=== PATIENT | female | born 1960 | race American Indian/Alaskan Native ===

== ENCOUNTER 2019-04-20 10:26 | Emergency (ER) | payer MEDICAID ==
[2019-04-20 12:37] LABS: Basophils % (Auto) 1.1 % (0.0-1.8); Eosinophils % (Auto) 0.5 % (0.0-4.3); Hematocrit 39.7 % (30.3-42.9); Hemoglobin 13.3 gm/dl (10.1-14.3); Lymphocytes # (Auto) 0.9 K/mm3 (1.2-5.4); Lymphocytes % (Auto) 29.2 % (13.4-35.0); Mean Corpuscular HGB Conc 34 % (30-34); Mean Corpuscular Volume 88 fl (79-97); Monocytes # (Auto) 0.4 K/mm3 (0.0-0.8); Monocytes % (Auto) 13.9 % (0.0-7.3); Platelet Count 161 K/mm3 (140-440); Red Blood Count 4.52 M/mm3 (3.65-5.03); Red Cell Distribution Width 15.1 % (13.2-15.2)
[2019-04-20 13:01] LABS: Alanine Aminotransferase 13 units/L (7-56); Albumin 4.5 g/dL (3.9-5); BUN/Creatinine Ratio 12; Blood Urea Nitrogen 12 mg/dL (7-17); Calcium 9.1 mg/dL (8.4-10.2); Hemolysis Index 10
--- NOTE | 2019-04-20 13:30 | XRay Report ---
CHEST 1 VIEW INDICATION: hypertension. COMPARISON: None FINDINGS: Support devices: None. Heart: Within normal limits. Lungs/Pleura: No acute air space or interstitial disease. Additional findings: None. IMPRESSION: No acute findings. Signer Name: Kirit Guy Jr, MD Signed: 04/20/2019 1:25 PM Workstation Name: [id number]
--- NOTE | 2019-04-20 14:15 | Cat Scan Report ---
CT head/brain wo con INDICATION / CLINICAL INFORMATION: 58 years Female; AMS. TECHNIQUE: Routine CT head without contrast. All CT scans at this location are performed using CT dos e reduction for ALARA by means of automated exposure control. COMPARISON: None. FINDINGS: BRAIN / INTRACRANIAL CONTENTS: No acute hemorrhage, mass effect, midline shift, hydrocephalus, or acu te, large territorial infarct. No chronic infarct or focal atrophy. Normal brain volume and ventricul ar/sulcal size for age. No significant white matter abnormality. CRANIOCERVICAL JUNCTION: No significant abnormality. ORBITS: No significant abnormality of visualized orbits. SINUSES / MASTOIDS: No significant abnormality the visualized paranasal sinuses or mastoid air cells. ADDITIONAL FINDINGS: None. IMPRESSION: 1. No focal mass, hemorrhage, hydrocephalus, or acute, large territorial infarct. Signer Name: Anil Carrasquillo MD, III Signed: 04/20/2019 2:11 PM Workstation Name: [id number]
--- NOTE | 2019-04-20 14:53 | Emergency Department Report ---
ED General Adult HPI - General Chief complaint: Medical Clearance Stated complaint: AMS Time Seen by Provider: 04/20/19 12:08 Source: patient Mode of arrival: Ambulatory Limitations: No Limitations - History of Present Illness Initial comments: This is a 58-year-old female who was referred for medical clearance for [facility] care. The patient's dictation for [facility] treatment is not specifically known to me. However she does appear to have dementia. She does not know what State she is in. She can answer questions coherently but seems to have orientation problems and memory loss. He has grossly negative review of systems. Indeed she has no complaints whatsoever. -: unknown Associated Symptoms: denies other symptoms - Related Data Home Medications Medication Instructions Recorded Confirmed Last Taken FLUoxetine [Prozac] 10 mg PO QDAY 08/03/13 08/03/13 08/02/13 09:00 Lisinopril [Zestril TAB] 10 mg PO QDAY 08/03/13 08/03/13 08/03/13 08:00 Paliperidone Palmitate [Invega 0.75 ml SUB-Q QMONTH 08/03/13 08/03/13 07/27/13 10:00 [facility]] Previous Rx's Medication Instructions Recorded Last Taken Type Atenolol [Tenormin] 25 mg PO DAILY #30 tab 08/03/13 Unknown Rx Allergies Allergy/AdvReac Type Severity Reaction Status Date / Time No Known Allergies Allergy Verified 04/20/19 10:53 ED Review of Systems ROS: Stated complaint: AMS Other details as noted in HPI Constitutional: denies: chills, fever Eyes: denies: eye pain, eye discharge, vision change ENT: denies: ear pain, throat pain Respiratory: denies: cough, shortness of breath, wheezing Cardiovascular: denies: chest pain, palpitations Endocrine: no symptoms reported Gastrointestinal: denies: abdominal pain, nausea, diarrhea Genitourinary: denies: urgency, dysuria, discharge Musculoskeletal: denies: back pain, joint swelling, arthralgia Skin: denies: rash, lesions Neurological: denies: headache, weakness, paresthesias Psychiatric: denies: anxiety, depression Hematological/Lymphatic: denies: easy bleeding, easy bruising ED Past Medical Hx - Past Medical History Hx Hypertension: Yes Hx Psychiatric Treatment: Yes Additional medical history: bipolar. depression - Social History Smoking Status: Never Smoker Substance Use Type: None - Medications Home Medications: Home Medications Medication Instructions Recorded Confirmed Last Taken Type Atenolol [Tenormin] 25 mg PO DAILY #30 tab 08/03/13 Unknown Rx FLUoxetine [Prozac] 10 mg PO QDAY 08/03/13 08/03/13 08/02/13 09:00 History Lisinopril [Zestril TAB] 10 mg PO QDAY 08/03/13 08/03/13 08/03/13 08:00 History Paliperidone Palmitate [Invega 0.75 ml SUB-Q QMONTH 08/03/13 08/03/13 07/27/13 10:00 History [facility]] ED Physical Exam - General Limitations: No Limitations General appearance: alert, in no apparent distress - Head Head exam: Present: atraumatic, normocephalic - Eye Eye exam: Present: other (appears to have some corneal and/or anterior chamber c hronic changes O. D.) - ENT ENT exam: Present: mucous membranes moist - Neck Neck exam: Present: normal inspection. Absent: tenderness, meningismus - Respiratory Respiratory exam: Present: normal lung sounds bilaterally. Absent: respiratory distress - Cardiovascular Cardiovascular Exam: Present: regular rate, normal rhythm. Absent: systolic murmur, diastolic murmur, rubs, gallop - GI/Abdominal GI/Abdominal exam: Present: soft, normal bowel sounds. Absent: distended, tenderness, guarding, rebound, rigid - Extremities Exam Extremities exam: Present: normal inspection - Back Exam Back exam: Present: normal inspection - Neurological Exam Neurological exam: Present: alert, CN II-XII intact. Absent: oriented X3, motor sensory deficit - Psychiatric Psychiatric exam: Present: normal mood, flat affect - Skin Skin exam: Present: warm, dry, intact, normal color. Absent: rash ED Course Vital Signs 04/20/19 10:51 Temperature 97.8 F Pulse Rate 75 Respiratory 16 Rate Blood Pressure 128/76 O2 Sat by Pulse 100 Oximetry - Reevaluation(s) Reevaluation #1: Cleared appropriate for her [facility]psych[facility] placement. 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 Apparently she does have a history of bipolar disorder. Case was discussed with Dr. Hess who will be consulting for the [facility] psych unit. Patient is appropriate for discharge from the emergency department. 04/20/19 14:52 ED Medical Decision Making - Lab Data Result diagrams: 04/20/19 12:09 04/20/19 12:09 Laboratory Results - last 24 hr 04/20/19 04/20/19 04/20/19 12:09 12:09 12:09 WBC 3.0 L RBC 4.52 Hgb 13.3 Hct 39.7 MCV 88 MCH 29 MCHC 34 RDW 15.1 Plt Count 161 Lymph % (Auto) 29.2 [place] % (Auto) 13.9 H Eos % (Auto) 0.5 Baso % (Auto) 1.1 Lymph # 0.9 L [place] # 0.4 Eos # 0.0 Baso # 0.0 Seg Neutrophils % 55.3 Seg Neutrophils # 1.7 L Sodium 140 Potassium 4.4 Chloride 103.4 Carbon Dioxide 22 Anion Gap 19 BUN 12 Creatinine 1.0 Estimated GFR > 60 BUN/Creatinine Ratio 12 Glucose 82 Calcium 9.1 Total Bilirubin 0.50 AST 16 ALT 13 Alkaline Phosphatase 53 Total Protein 8.1 Albumin 4.5 Albumin/Globulin Ratio 1.3 Salicylates < 0.3 L Acetaminophen Plasma/Serum Alcohol 04/20/19 04/20/19 12:09 12:09 WBC RBC Hgb Hct MCV MCH MCHC RDW Plt Count Lymph % (Auto) [place] % (Auto) Eos % (Auto) Baso % (Auto) Lymph # [place] # Eos # Baso # Seg Neutrophils % Seg Neutrophils # Sodium Potassium Chloride Carbon Dioxide Anion Gap BUN Creatinine Estimated GFR BUN/Creatinine Ratio Glucose Calcium Total Bilirubin AST ALT Alkaline Phosphatase Total Protein Albumin Albumin/Globulin Ratio Salicylates Acetaminophen < 5.0 L Plasma/Serum Alcohol < 0.01 - Radiology Data Radiology results: report reviewed (CT the head no acute process) Critical care attestation.: If time is entered above; I have spent that time in minutes in the direct care of this critically ill patient, excluding procedure time. ED Disposition Clinical Impression: Medical clearance for psychiatric admission Dementia Qualifiers: Dementia type: unspecified type Dementia behavioral disturbance: without behavioral disturbance Qualified Code(s): F03.90 - Unspecified dementia without behavioral disturbance Disposition: DC-01 TO HOME OR SELFCARE Is pt being admited?: No Does the pt Need Aspirin: No Condition: Stable Instructions: Dementia (ED) Referrals: PRIMARY CARE, [Primary Care Provider] - 24 Hours Time of Disposition: 14:57
[2019-04-20 17:06] VITALS: BP 134/71
== END 2019-04-20 17:20 | disposition home or self-care (01) ==
LOC: ED 10:26
DX: F03.90 Unspecified dementia, unspecified severity, without behavioral disturbance, psychotic disturbance, mood disturbance, and anxiety (principal); I10 Essential (primary) hypertension; F32.9 Major depressive disorder, single episode, unspecified; Z79.899 Other long term (current) drug therapy
CPT/HCPCS: 36415; 70450; 71045; 80053; 80320; 85025; G0480

== ENCOUNTER 2019-04-20 15:34 | Inpatient (IN) | payer MEDICAID ==
[2019-04-20] MEDS ORDERED: ATIVAN IM PRN (17:43)
[2019-04-20] MEDS ORDERED: HALDOL IM PRN (17:43)
[2019-04-20] MEDS ORDERED: PALIPERIDONE PALMITATE SUB-Q SCH (17:45)
[2019-04-20 20:44] LABS: Basophils % (Auto) 0.9 % (0.0-1.8); Eosinophils % (Auto) 1.4 % (0.0-4.3); Hematocrit 37.7 % (30.3-42.9); Hemoglobin 12.9 gm/dl (10.1-14.3); Lymphocytes # (Auto) 0.9 K/mm3 (1.2-5.4); Mean Corpuscular HGB Conc 34 % (30-34); Mean Corpuscular Volume 88 fl (79-97); Monocytes # (Auto) 0.3 K/mm3 (0.0-0.8); Monocytes % (Auto) 12.2 % (0.0-7.3); Platelet Count 175 K/mm3 (140-440); Red Blood Count 4.31 M/mm3 (3.65-5.03); Red Cell Distribution Width 14.6 % (13.2-15.2)
[2019-04-20 21:19] LABS: Albumin 4.2 g/dL (3.9-5); Calcium 9.1 mg/dL (8.4-10.2); Chol/HDL Ratio 2.5 %
[2019-04-20] MEDS: RisperDAL PO SCH (21:45)
--- NOTE | 2019-04-21 09:11 | History and Physical Report ---
History of Present Illness Date of admission: 04/20/19 18:35 Chief complaint: Consulted for management of hypertension History of present illness: 58-year-old woman who was admitted to [facility] unit. Medicine consulted for medical H&P. Patient has no complaints but she is confused. Past medical history; hypertension, bipolar disorder, depression, psychosis Past surgical history; denies major surgeries Social history; denies smoking alcohol or drug abuse Family history; hypertension Medications and Allergies Allergies Allergy/AdvReac Type Severity Reaction Status Date / Time No Known Allergies Allergy Verified 04/20/19 10:53 Home Medications Medication Instructions Recorded Confirmed Last Taken Type Atenolol [Tenormin] 25 mg PO DAILY #30 tab 08/03/13 04/21/19 Unknown Rx FLUoxetine [Prozac] 10 mg PO QDAY 08/03/13 04/21/19 08/02/13 09:00 History Lisinopril [Zestril TAB] 10 mg PO QDAY 08/03/13 04/21/19 08/03/13 08:00 History Paliperidone Palmitate [Invega 0.75 ml SUB-Q QMONTH 08/03/13 04/21/19 07/27/13 10:00 History [facility]] Active Meds: Active Medications Atenolol (Tenormin) 25 mg PO DAILY [facility] Fluoxetine HCl (Prozac) 10 mg PO QDAY [facility] Haloperidol Lactate (Haldol) 5 mg IM Q6H PRN PRN Reason: Agitation Lisinopril (Zestril) 10 mg PO QDAY [facility] Lorazepam (Ativan) 2 mg IM Q6H PRN PRN Reason: Agitation Miscellaneous Medication (Paliperidone Palmitate [Invega [facility]ust[facility]]) 0.75 ml SUB-Q QMONTH [facility] Risperidone (Risperdal) 1 mg PO BID [facility] Last Admin: 04/20/19 21:45 Dose: 1 mg Documented by: Review of Systems ROS unobtainable: due to mental status Exam - Constitutional Vitals: Temp Pulse Resp BP Pulse Ox 97.6 F 93 H 18 91/40 99 04/20/19 22:00 04/20/19 22:00 04/20/19 22:00 04/20/19 22:00 04/20/19 22:00 General appearance: Present: no acute distress, well-nourished - EENT Eyes: Present: PERRL ENT: hearing intact, clear oral mucosa - Neck Neck: Present: supple, normal ROM - Respiratory Respiratory effort: normal Respiratory: bilateral: CTA - Cardiovascular Heart Sounds: Present: S1 & S2. Absent: rub, click - Extremities Extremities: pulses symmetrical, No edema Peripheral Pulses: within normal limits - Abdominal General gastrointestinal: Present: soft, non-tender, non-distended, normal bowel sounds Female genitourinary: Present: normal - Integumentary Integumentary: Present: clear, warm, dry - Musculoskeletal Musculoskeletal: gait normal, strength equal bilaterally - Psychiatric Psychiatric: no appropriate mood/affect, no intact judgment & insight, no memory intact - Neurologic Neurologic: CNII-XII intact, moves all extremities Results - Labs CBC & Chem 7: 04/20/19 20:14 04/20/19 20:14 Labs: Laboratory Last Values WBC 2.8 K/mm3 (4.5-11.0) L 04/20/19 20:14 RBC 4.31 M/mm3 (3.65-5.03) 04/20/19 20:14 Hgb 12.9 gm/dl (10.1-14.3) 04/20/19 20:14 Hct 37.7 % (30.3-42.9) 04/20/19 20:14 MCV 88 fl (79-97) 04/20/19 20:14 MCH 30 pg (28-32) 04/20/19 20:14 MCHC 34 % (30-34) 04/20/19 20:14 RDW 14.6 % (13.2-15.2) 04/20/19 20:14 Plt Count 175 K/mm3 (140-440) 04/20/19 20:14 Lymph % (Auto) 33.0 % (13.4-35.0) 04/20/19 20:14 Carbon % (Auto) 12.2 % (0.0-7.3) H 04/20/19 20:14 Eos % (Auto) 1.4 % (0.0-4.3) 04/20/19 20:14 Baso % (Auto) 0.9 % (0.0-1.8) 04/20/19 20:14 Lymph # 0.9 K/mm3 (1.2-5.4) L 04/20/19 20:14 Carbon # 0.3 K/mm3 (0.0-0.8) 04/20/19 20:14 Eos # 0.0 K/mm3 (0.0-0.4) 04/20/19 20:14 Baso # 0.0 K/mm3 (0.0-0.1) 04/20/19 20:14 Seg Neutrophils % 52.5 % (40.0-70.0) 04/20/19 20:14 Seg Neutrophils # 1.5 K/mm3 (1.8-7.7) L 04/20/19 20:14 Sodium 136 mmol/L (137-145) L 04/20/19 20:14 Potassium 3.8 mmol/L (3.6-5.0) 04/20/19 20:14 Chloride 100.1 mmol/L (98-107) 04/20/19 20:14 Carbon Dioxide 19 mmol/L (22-30) L 04/20/19 20:14 Anion Gap 21 mmol/L 04/20/19 20:14 BUN 14 mg/dL (7-17) 04/20/19 20:14 Creatinine 1.5 mg/dL (0.7-1.2) H 04/20/19 20:14 Estimated GFR 43 ml/min 04/20/19 20:14 BUN/Creatinine Ratio 9 % 04/20/19 20:14 Glucose 228 mg/dL (65-100) H 04/20/19 20:14 POC Glucose 89 (70-105) 04/21/19 06:54 Hemoglobin A1c 5.2 % (4-6) 04/20/19 20:14 Calcium 9.1 mg/dL (8.4-10.2) 04/20/19 20:14 Total Bilirubin 0.40 mg/dL (0.1-1.2) 04/20/19 20:14 AST 15 units/L (5-40) 04/20/19 20:14 ALT 13 units/L (7-56) 04/20/19 20:14 Alkaline Phosphatase 53 units/L (35-129) 04/20/19 20:14 Total Protein 7.9 g/dL (6.3-8.2) 04/20/19 20:14 Albumin 4.2 g/dL (3.9-5) 04/20/19 20:14 Albumin/Globulin Ratio 1.1 % 04/20/19 20:14 Triglycerides 51 mg/dL (2-149) 04/20/19 20:14 Cholesterol 140 mg/dL (50-199) 04/20/19 20:14 LDL Cholesterol Direct 73 mg/dL (50-130) 04/20/19 20:14 HDL Cholesterol 56 mg/dL (40-59) 04/20/19 20:14 Cholesterol/HDL Ratio 2.50 % 04/20/19 20:14 Assessment and Plan Assessment and plan: 58-year-old woman admitted to [facility] unit for management of bipolar disorder and senile dementia Hypertension; continue home medications Bipolar disorder and psychosis; management per [facility] DVT prophylaxis; frequent ambulation, per primary team
[2019-04-21] MEDS: RisperDAL PO SCH ×2 (10:16→21:30)
[2019-04-21] MEDS: PROzac PO SCH (10:16)
[2019-04-21] MEDS: TENORMIN PO SCH (10:17)
[2019-04-21] MEDS: ZESTRIL PO SCH (10:17)
--- NOTE | 2019-04-22 05:01 | History and Physical Report ---
GP History & Physical - History of Present Illness Date of admission: 04/20/19 Date of Examination: 04/21/19 Reason for Admission: Danger to self, Danger to others, Impaired reality testing, Psychopathology interference, Unable to care for self Chief Complaint: I was annoyed History of Present Illness: The patient is a 52yo but disabled -[place] female with history of Schizophrenia. She presents with bizarre, disorganized behavior and inability to care for self. Per patient's sister's report, Patient's ability to complete ADLs (showering and dressing) has declined. She is on monthly injection of Invega which seems to be effective in keeping patient's mental state stable. Her next injection is within a week from onset of deterioration of mental state. Sister reports is experienci ng worsening A/H and patient has been more agitated agitation and she is responding more to internal stimuli. Patient was started on Risperidone 1mg bid on admission last night. Patient seen this morning. She is calm and pleasant but appears to be guarded. She reports being annoyed at home but states "I am fine now". She denies SI/HI/AVH/Paranoia. Legal Status: Voluntary Patient Problems: Current Active Problems Schizophrenia (Acute) Medications and Allergies Allergies Allergy/AdvReac Type Severity Reaction Status Date / Time No Known Allergies Allergy Verified 04/20/19 10:53 Home Medications Medication Instructions Recorded Confirmed Last Taken Type Atenolol [Tenormin] 25 mg PO DAILY #30 tab 08/03/13 04/21/19 Unknown Rx FLUoxetine [Prozac] 10 mg PO QDAY 08/03/13 04/21/19 08/02/13 09:00 History Lisinopril [Zestril TAB] 10 mg PO QDAY 08/03/13 04/21/19 08/03/13 08:00 History Paliperidone Palmitate [Invega 0.75 ml SUB-Q QMONTH 08/03/13 04/21/19 07/27/13 10:00 History Sust[facility]] Active Meds: Active Medications Atenolol (Tenormin) 25 mg PO DAILY [facility] Last Admin: 04/21/19 10:17 Dose: 25 mg Documented by: Fluoxetine HCl (Prozac) 10 mg PO QDAY [facility] Last Admin: 04/21/19 10:16 Dose: 10 mg Documented by: Haloperidol Lactate (Haldol) 5 mg IM Q6H PRN PRN Reason: Agitation Lisinopril (Zestril) 10 mg PO QDAY [facility] Last Admin: 04/21/19 10:17 Dose: Not Given Documented by: Lorazepam (Ativan) 2 mg IM Q6H PRN PRN Reason: Agitation Miscellaneous Medication (Paliperidone Palmitate [Invega Sustenna]) 0.75 ml SUB-Q QMONTH [facility] Risperidone (Risperdal) 1 mg PO BID [facility] Last Admin: 04/21/19 21:30 Dose: 1 mg Documented by: Substance History - Substance History Drug Use: none Hx Tobacco Use: No Alcohol Use: No Past psychiatric history - Past Medical History Past Medical History: hypertension - past Psychiatric treatment and history Psych: Schizophrenia psychiatric treatment history: Patient has established outpatient care. She denies prior suicide attempt - Social History Social history: lives with family (with sister, but , disabled, completed H/S, denies legal problems and denies access to guns. ) Review of Systems All systems: negative Psychiatric: hallucinations Results - Results Labs/Vitals: Laboratory Last Values WBC 2.8 K/mm3 (4.5-11.0) L 04/20/19 20:14 RBC 4.31 M/mm3 (3.65-5.03) 04/20/19 20:14 Hgb 12.9 gm/dl (10.1-14.3) 04/20/19 20:14 Hct 37.7 % (30.3-42.9) 04/20/19 20:14 MCV 88 fl (79-97) 04/20/19 20:14 MCH 30 pg (28-32) 04/20/19 20:14 MCHC 34 % (30-34) 04/20/19 20:14 RDW 14.6 % (13.2-15.2) 04/20/19 20:14 Plt Count 175 K/mm3 (140-440) 04/20/19 20:14 Lymph % (Auto) 33.0 % (13.4-35.0) 04/20/19 20:14 [place] % (Auto) 12.2 % (0.0-7.3) H 04/20/19 20:14 Eos % (Auto) 1.4 % (0.0-4.3) 04/20/19 20:14 Baso % (Auto) 0.9 % (0.0-1.8) 04/20/19 20:14 Lymph # 0.9 K/mm3 (1.2-5.4) L 04/20/19 20:14 [place] # 0.3 K/mm3 (0.0-0.8) 04/20/19 20:14 Eos # 0.0 K/mm3 (0.0-0.4) 04/20/19 20:14 Baso # 0.0 K/mm3 (0.0-0.1) 04/20/19 20:14 Seg Neutrophils % 52.5 % (40.0-70.0) 04/20/19 20:14 Seg Neutrophils # 1.5 K/mm3 (1.8-7.7) L 04/20/19 20:14 Sodium 136 mmol/L (137-145) L 04/20/19 20:14 Potassium 3.8 mmol/L (3.6-5.0) 04/20/19 20:14 Chloride 100.1 mmol/L (98-107) 04/20/19 20:14 Carbon Dioxide 19 mmol/L (22-30) L 04/20/19 20:14 Anion Gap 21 mmol/L 04/20/19 20:14 BUN 14 mg/dL (7-17) 04/20/19 20:14 Creatinine 1.5 mg/dL (0.7-1.2) H 04/20/19 20:14 Estimated GFR 43 ml/min 04/20/19 20:14 BUN/Creatinine Ratio 9 % 04/20/19 20:14 Glucose 228 mg/dL (65-100) H 04/20/19 20:14 POC Glucose 89 (70-105) 04/21/19 06:54 Hemoglobin A1c 5.2 % (4-6) 04/20/19 20:14 Calcium 9.1 mg/dL (8.4-10.2) 04/20/19 20:14 Total Bilirubin 0.40 mg/dL (0.1-1.2) 04/20/19 20:14 AST 15 units/L (5-40) 04/20/19 20:14 ALT 13 units/L (7-56) 04/20/19 20:14 Alkaline Phosphatase 53 units/L (35-129) 04/20/19 20:14 Total Protein 7.9 g/dL (6.3-8.2) 04/20/19 20:14 Albumin 4.2 g/dL (3.9-5) 04/20/19 20:14 Albumin/Globulin Ratio 1.1 % 04/20/19 20:14 Triglycerides 51 mg/dL (2-149) 04/20/19 20:14 Cholesterol 140 mg/dL (50-199) 04/20/19 20:14 LDL Cholesterol Direct 73 mg/dL (50-130) 04/20/19 20:14 HDL Cholesterol 56 mg/dL (40-59) 04/20/19 20:14 Cholesterol/HDL Ratio 2.50 % 04/20/19 20:14 Last Vital Signs Temp 97.7 F 04/21/19 19:02 Pulse 60 04/21/19 19:03 Resp 18 04/21/19 19:02 BP 88/55 04/21/19 19:02 Pulse Ox 99 04/21/19 19:03 Physical Examination - Constitutional Vitals: Vital Signs Temp Pulse Resp BP Pulse Ox 97.7 F 60 18 88/55 99 04/21/19 19:02 04/21/19 19:03 04/21/19 19:02 04/21/19 19:02 04/21/19 19:03 Temperature -Last 24 Hours Temperature 97.7 F Temperature 98.1 F General appearance: Present: no acute distress - EENT Eyes: Present: PERRL, EOM intact ENT: hearing intact, clear oral mucosa - Neck Neck: Present: supple, normal ROM - Respiratory Respiratory effort: normal Mental Status Exam - Vital signs Last Vital Signs Temp 97.7 F 04/21/19 19:02 Pulse 60 04/21/19 19:03 Resp 18 04/21/19 19:02 BP 88/55 04/21/19 19:02 Pulse Ox 99 04/21/19 19:03 - Exam Orientation: time, place, person Affect: normal Mood: congruent with affect Thought Process: Thought Blocking Perceptions: auditory Speech: paucity Concentration: focused Motor activity: normal Level of consciousness: alert Memory: Intact Interaction: cooperative Assessment and Plan - Psychiatric problem (1) Schizophrenia Current Visit: Yes Status: Acute Qualifiers: Schizophrenia type: paranoid schizophrenia Qualified Code(s): F20.0 - Paranoid schizophrenia plan to address problem: Patient will be admitted for inpatient psychiatric evaluation, medication adjustment and close monitoring The patient's behavior, mood, sleep and appetite will be closely monitored. Patient will be enrolled in individual and group therapeutic sessions and encouraged to attend. Patient will be provided with a safe and structured environment. Patient's physical health needs will be addressed by the Hospitalist. Social Assessment will be completed and the Farm Management Adviser will work with patient and family to ensure a suitable and safe disposition Medication adjustment will be made as clinically indicated The patient agreed on the treatment plan, understood the risk, benefit, alternative treatment, potential consequence of no treatment, and gave informed consent. Physician Certification - Certification Statement Physician Certification Statement: This is an acknowledgement statement that ALHAJI US is a 58 year old F who requires inpatient psychiatric admission for treatment which could reasonably be expected to improve the patient's condition for Schizophrenia Estimated period of time patient will need to remain in the hospital: 5 days Plan for post-hospital care: Out-patient care
[2019-04-22] MEDS: ZESTRIL PO SCH (09:26)
[2019-04-22] MEDS: PROzac PO SCH (09:28)
[2019-04-22] MEDS: RisperDAL PO SCH ×2 (09:28→21:00)
[2019-04-22] MEDS: TENORMIN PO SCH (09:28)
--- NOTE | 2019-04-22 19:33 | Progress Note ---
Subjective Date of service: 04/22/19 Principal diagnosis: Paranoid Schizophrenia Subjective Comment: Patient is calm and pleasant this morning. She reports feeling better. She denies SI/HI/AVH/Paranoia. She is cooperative with cares and compliant with medications. She denies side to medications. MSE Orientation: time, place, person Affect: normal Mood: congruent with affect Thought Process: Linear Perceptions: none Speech: wnl Concentration: focused Motor activity: normal Level of consciousness: alert Memory: Intact Interaction: cooperative Objective - Criteria for Continued Treatment Criteria for Continued Treatment: Improving Level of Functioning, Stablizing Level of Functioning, Improving Emotional/Socia - Objective Observation Participation Level: Moderate Assessment and Plan - Patient Problems (1) Schizophrenia Current Visit: Yes Status: Acute Qualifiers: Schizophrenia type: paranoid schizophrenia Qualified Code(s): F20.0 - Paranoid schizophrenia Plan to address problem: Patient will be admitted for inpatient psychiatric evaluation, medication adjustment and close monitoring The patient's behavior, mood, sleep and appetite will be closely monitored. Patient will be enrolled in individual and group therapeutic sessions and encouraged to attend. Patient will be provided with a safe and structured environment. Patient's physical health needs will be addressed by the Hospitalist. Social Assessment will be completed and the Concrete Fence Builder will work with patient and family to ensure a suitable and safe disposition Medication adjustment will be made as clinically indicated The patient agreed on the treatment plan, understood the risk, benefit, alternative treatment, potential consequence of no treatment, and gave informed consent. Medications and Allergies Allergies Allergy/AdvReac Type Severity Reaction Status Date / Time No Known Allergies Allergy Verified 04/20/19 10:53 Home Medications Medication Instructions Recorded Confirmed Last Taken Type Atenolol [Tenormin] 25 mg PO DAILY #30 tab 08/03/13 04/21/19 Unknown Rx FLUoxetine [Prozac] 10 mg PO QDAY 08/03/13 04/21/19 08/02/13 09:00 History Lisinopril [Zestril TAB] 10 mg PO QDAY 08/03/13 04/21/19 08/03/13 08:00 History Paliperidone Palmitate [Invega 0.75 ml SUB-Q QMONTH 08/03/13 04/21/19 07/27/13 10:00 History Sustenna] Active Meds: Active Medications Atenolol (Tenormin) 25 mg PO DAILY [facility] Last Admin: 04/22/19 09:28 Dose: 25 mg Documented by: Fluoxetine HCl (Prozac) 10 mg PO QDAY [facility] Last Admin: 04/22/19 09:28 Dose: 10 mg Documented by: Haloperidol Lactate (Haldol) 5 mg IM Q6H PRN PRN Reason: Agitation Lisinopril (Zestril) 10 mg PO QDAY [facility] Last Admin: 04/22/19 09:26 Dose: 10 mg Documented by: Lorazepam (Ativan) 2 mg IM Q6H PRN PRN Reason: Agitation Miscellaneous Medication (Paliperidone Palmitate [Invega Sustenna]) 0.75 ml SUB-Q QMONTH [facility] Risperidone (Risperdal) 1 mg PO BID [facility] Last Admin: 04/22/19 09:28 Dose: 1 mg Documented by: Results - Results Labs/Vitals: Laboratory Last Values WBC 2.8 K/mm3 (4.5-11.0) L 04/20/19 20:14 RBC 4.31 M/mm3 (3.65-5.03) 04/20/19 20:14 Hgb 12.9 gm/dl (10.1-14.3) 04/20/19 20:14 Hct 37.7 % (30.3-42.9) 04/20/19 20:14 MCV 88 fl (79-97) 04/20/19 20:14 MCH 30 pg (28-32) 04/20/19 20:14 MCHC 34 % (30-34) 04/20/19 20:14 RDW 14.6 % (13.2-15.2) 04/20/19 20:14 Plt Count 175 K/mm3 (140-440) 04/20/19 20:14 Lymph % (Auto) 33.0 % (13.4-35.0) 04/20/19 20:14 [place] % (Auto) 12.2 % (0.0-7.3) H 04/20/19 20:14 Eos % (Auto) 1.4 % (0.0-4.3) 04/20/19 20:14 Baso % (Auto) 0.9 % (0.0-1.8) 04/20/19 20:14 Lymph # 0.9 K/mm3 (1.2-5.4) L 04/20/19 20:14 [place] # 0.3 K/mm3 (0.0-0.8) 04/20/19 20:14 Eos # 0.0 K/mm3 (0.0-0.4) 04/20/19 20:14 Baso # 0.0 K/mm3 (0.0-0.1) 04/20/19 20:14 Seg Neutrophils % 52.5 % (40.0-70.0) 04/20/19 20:14 Seg Neutrophils # 1.5 K/mm3 (1.8-7.7) L 04/20/19 20:14 Sodium 136 mmol/L (137-145) L 04/20/19 20:14 Potassium 3.8 mmol/L (3.6-5.0) 04/20/19 20:14 Chloride 100.1 mmol/L (98-107) 04/20/19 20:14 Carbon Dioxide 19 mmol/L (22-30) L 04/20/19 20:14 Anion Gap 21 mmol/L 04/20/19 20:14 BUN 14 mg/dL (7-17) 04/20/19 20:14 Creatinine 1.5 mg/dL (0.7-1.2) H 04/20/19 20:14 Estimated GFR 43 ml/min 04/20/19 20:14 BUN/Creatinine Ratio 9 % 04/20/19 20:14 Glucose 228 mg/dL (65-100) H 04/20/19 20:14 POC Glucose 89 (70-105) 04/21/19 06:54 Hemoglobin A1c 5.2 % (4-6) 04/20/19 20:14 Calcium 9.1 mg/dL (8.4-10.2) 04/20/19 20:14 Total Bilirubin 0.40 mg/dL (0.1-1.2) 04/20/19 20:14 AST 15 units/L (5-40) 04/20/19 20:14 ALT 13 units/L (7-56) 04/20/19 20:14 Alkaline Phosphatase 53 units/L (35-129) 04/20/19 20:14 Total Protein 7.9 g/dL (6.3-8.2) 04/20/19 20:14 Albumin 4.2 g/dL (3.9-5) 04/20/19 20:14 Albumin/Globulin Ratio 1.1 % 04/20/19 20:14 Triglycerides 51 mg/dL (2-149) 04/20/19 20:14 Cholesterol 140 mg/dL (50-199) 04/20/19 20:14 LDL Cholesterol Direct 73 mg/dL (50-130) 04/20/19 20:14 HDL Cholesterol 56 mg/dL (40-59) 04/20/19 20:14 Cholesterol/HDL Ratio 2.50 % 04/20/19 20:14 Last Vital Signs Temp 98.2 F 04/22/19 09:09 Pulse 72 04/22/19 10:00 Resp 16 04/22/19 09:09 BP 98/62 04/22/19 10:00 Pulse Ox 99 04/22/19 09:09
--- NOTE | 2019-04-23 07:38 | Progress Note ---
Subjective Date of service: 04/23/19 Principal diagnosis: Paranoid Schizophrenia Subjective Comment: Pt states that she is complaint with all her meds, denies any side effects, slept well and has a fair appetite. Pt denies hallucinations, denies harming herself/others, and denies paranoia. Pt stated that she had no questions/concerns for physician. Plan to d/c pt 24 Apr 2019. Nursing note states, Patient alert and oriented x2. Denies pain. Compliant with medications. Reports that pt was hypotensive and bradycardia at the start of the shift 75/47, BP rechecked and was 80/50, patient given PO fluids and a snack and is doing well. MSE Orientation: time, place, person Affect: normal Mood: congruent with affect Thought Process: Linear Perceptions: none Speech: wnl Concentration: focused Motor activity: normal Level of consciousness: alert Memory: Intact Interaction: cooperative Objective - Criteria for Continued Treatment Criteria for Continued Treatment: Improving Level of Functioning, Improving Treatment / Medication Compliance - Mental Status Mental Status: Oriented x 3 - Objective Observation Participation Level: Minimal Reason(s) For Not Participating: Asocial Assessment and Plan - Patient Problems (1) Schizophrenia Current Visit: Yes Status: Acute Qualifiers: Schizophrenia type: paranoid schizophrenia Qualified Code(s): F20.0 - Paranoid schizophrenia Plan to address problem: Patient will be admitted for inpatient psychiatric evaluation, medication adjustment and close monitoring The patient's behavior, mood, sleep and appetite will be closely monitored. Patient will be enrolled in individual and group therapeutic sessions and encouraged to attend. Patient will be provided with a safe and structured environment. Patient's physical health needs will be addressed by the Hospitalist. Social Assessment will be completed and the Dementia Program Director will work with patient and family to ensure a suitable and safe disposition Medication adjustment will be made as clinically indicated The patient agreed on the treatment plan, understood the risk, benefit, alternative treatment, potential consequence of no treatment, and gave informed consent. Medications and Allergies Allergies Allergy/AdvReac Type Severity Reaction Status Date / Time No Known Allergies Allergy Verified 04/20/19 10:53 Home Medications Medication Instructions Recorded Confirmed Last Taken Type Atenolol [Tenormin] 25 mg PO DAILY #30 tab 08/03/13 04/21/19 Unknown Rx FLUoxetine [Prozac] 10 mg PO QDAY 08/03/13 04/21/19 08/02/13 09:00 History Lisinopril [Zestril TAB] 10 mg PO QDAY 08/03/13 04/21/19 08/03/13 08:00 History Paliperidone Palmitate [Invega 0.75 ml SUB-Q QMONTH 08/03/13 04/21/19 07/27/13 10:00 History Sustenna] Active Meds: Active Medications Atenolol (Tenormin) 25 mg PO DAILY [facility] Last Admin: 04/22/19 09:28 Dose: 25 mg Documented by: Fluoxetine HCl (Prozac) 10 mg PO QDAY [facility] Last Admin: 04/22/19 09:28 Dose: 10 mg Documented by: Haloperidol Lactate (Haldol) 5 mg IM Q6H PRN PRN Reason: Agitation Lisinopril (Zestril) 10 mg PO QDAY [facility] Last Admin: 04/22/19 09:26 Dose: 10 mg Documented by: Lorazepam (Ativan) 2 mg IM Q6H PRN PRN Reason: Agitation Miscellaneous Medication (Paliperidone Palmitate [Invega Sustenna]) 0.75 ml SUB-Q QMONTH [facility] Risperidone (Risperdal) 1 mg PO BID [facility] Last Admin: 04/22/19 21:00 Dose: 1 mg Documented by: Results - Results Labs/Vitals: Laboratory Last Values WBC 2.8 K/mm3 (4.5-11.0) L 04/20/19 20:14 RBC 4.31 M/mm3 (3.65-5.03) 04/20/19 20:14 Hgb 12.9 gm/dl (10.1-14.3) 04/20/19 20:14 Hct 37.7 % (30.3-42.9) 04/20/19 20:14 MCV 88 fl (79-97) 04/20/19 20:14 MCH 30 pg (28-32) 04/20/19 20:14 MCHC 34 % (30-34) 04/20/19 20:14 RDW 14.6 % (13.2-15.2) 04/20/19 20:14 Plt Count 175 K/mm3 (140-440) 04/20/19 20:14 Lymph % (Auto) 33.0 % (13.4-35.0) 04/20/19 20:14 [place] % (Auto) 12.2 % (0.0-7.3) H 04/20/19 20:14 Eos % (Auto) 1.4 % (0.0-4.3) 04/20/19 20:14 Baso % (Auto) 0.9 % (0.0-1.8) 04/20/19 20:14 Lymph # 0.9 K/mm3 (1.2-5.4) L 04/20/19 20:14 [place] # 0.3 K/mm3 (0.0-0.8) 04/20/19 20:14 Eos # 0.0 K/mm3 (0.0-0.4) 04/20/19 20:14 Baso # 0.0 K/mm3 (0.0-0.1) 04/20/19 20:14 Seg Neutrophils % 52.5 % (40.0-70.0) 04/20/19 20:14 Seg Neutrophils # 1.5 K/mm3 (1.8-7.7) L 04/20/19 20:14 Sodium 136 mmol/L (137-145) L 04/20/19 20:14 Potassium 3.8 mmol/L (3.6-5.0) 04/20/19 20:14 Chloride 100.1 mmol/L (98-107) 04/20/19 20:14 Carbon Dioxide 19 mmol/L (22-30) L 04/20/19 20:14 Anion Gap 21 mmol/L 04/20/19 20:14 BUN 14 mg/dL (7-17) 04/20/19 20:14 Creatinine 1.5 mg/dL (0.7-1.2) H 04/20/19 20:14 Estimated GFR 43 ml/min 04/20/19 20:14 BUN/Creatinine Ratio 9 % 04/20/19 20:14 Glucose 228 mg/dL (65-100) H 04/20/19 20:14 POC Glucose 89 (70-105) 04/21/19 06:54 Hemoglobin A1c 5.2 % (4-6) 04/20/19 20:14 Calcium 9.1 mg/dL (8.4-10.2) 04/20/19 20:14 Total Bilirubin 0.40 mg/dL (0.1-1.2) 04/20/19 20:14 AST 15 units/L (5-40) 04/20/19 20:14 ALT 13 units/L (7-56) 04/20/19 20:14 Alkaline Phosphatase 53 units/L (35-129) 04/20/19 20:14 Total Protein 7.9 g/dL (6.3-8.2) 04/20/19 20:14 Albumin 4.2 g/dL (3.9-5) 04/20/19 20:14 Albumin/Globulin Ratio 1.1 % 04/20/19 20:14 Triglycerides 51 mg/dL (2-149) 04/20/19 20:14 Cholesterol 140 mg/dL (50-199) 04/20/19 20:14 LDL Cholesterol Direct 73 mg/dL (50-130) 04/20/19 20:14 HDL Cholesterol 56 mg/dL (40-59) 04/20/19 20:14 Cholesterol/HDL Ratio 2.50 % 04/20/19 20:14 Last Vital Signs Temp 97.5 F L 04/22/19 22:00 Pulse 56 L 04/22/19 22:00 Resp 18 04/22/19 22:00 BP 80/50 04/22/19 22:00 Pulse Ox 97 04/22/19 22:00
[2019-04-23] MEDS: PROzac PO SCH (10:25)
[2019-04-23] MEDS: RisperDAL PO SCH ×2 (10:29→22:20)
[2019-04-23] MEDS: TENORMIN PO SCH (12:28)
[2019-04-23] MEDS: ZESTRIL PO SCH (12:30)
--- NOTE | 2019-04-24 09:58 | Discharge Summary ---
Providers - Providers Date of Admission: 04/20/19 18:35 Date of discharge: 04/24/19 Attending physician: RAEANN LUCAS MD 04/21/19 08:33 Consult to Physician [CONS] Routine Comment: Consulting Provider: ANGELO XIE Physician Instructions: Reason For Exam: h&p Primary care physician: DIRECTOR OF [employer] Hospitalization Reason for admission: Impaired reality testing, Psychopathology interference, Unable to care for Condition: Stable Hospital course: The patient was provided inpatient psychiatric treatment with safe and supportive environment, group therapy, individual counseling, psychiatric medication, medication adjustment, adverse effect monitor, medical evaluation, medical treatment, social service assessment, family/social support meeting, placement assessment and psycho-education. The patients mood, anxiety, thoughts, stress management skill, cognition, impulse/anger control, motivation, understanding of disease, compliance to treatment and appreciation on family/social support are improved and stabilized. At the time of discharge, the patient had no suicidal ideas, no homicidal ideas, no aggressive thoughts, no endangering behavior and no debilitating adverse effects. Disposition: - TO HOME OR SELFCARE Time spent for discharge: 34 minutes Allergies/Adverse Reactions: Allergies No Known Allergies Allergy (Verified 04/20/19 10:53) Vital Signs: Last Vital Signs Temp 98 F 04/23/19 21:25 Pulse 72 04/23/19 21:25 Resp 16 04/23/19 21:25 BP 104/60 04/23/19 21:25 Pulse Ox 100 04/23/19 21:25 Last Lab: Laboratory Last Values WBC 2.8 K/mm3 (4.5-11.0) L 04/20/19 20:14 RBC 4.31 M/mm3 (3.65-5.03) 04/20/19 20:14 Hgb 12.9 gm/dl (10.1-14.3) 04/20/19 20:14 Hct 37.7 % (30.3-42.9) 04/20/19 20:14 MCV 88 fl (79-97) 04/20/19 20:14 MCH 30 pg (28-32) 04/20/19 20:14 MCHC 34 % (30-34) 04/20/19 20:14 RDW 14.6 % (13.2-15.2) 04/20/19 20:14 Plt Count 175 K/mm3 (140-440) 04/20/19 20:14 Lymph % (Auto) 33.0 % (13.4-35.0) 04/20/19 20:14 [place] % (Auto) 12.2 % (0.0-7.3) H 04/20/19 20:14 Eos % (Auto) 1.4 % (0.0-4.3) 04/20/19 20:14 Baso % (Auto) 0.9 % (0.0-1.8) 04/20/19 20:14 Lymph # 0.9 K/mm3 (1.2-5.4) L 04/20/19 20:14 [place] # 0.3 K/mm3 (0.0-0.8) 04/20/19 20:14 Eos # 0.0 K/mm3 (0.0-0.4) 04/20/19 20:14 Baso # 0.0 K/mm3 (0.0-0.1) 04/20/19 20:14 Seg Neutrophils % 52.5 % (40.0-70.0) 04/20/19 20:14 Seg Neutrophils # 1.5 K/mm3 (1.8-7.7) L 04/20/19 20:14 Sodium 136 mmol/L (137-145) L 04/20/19 20:14 Potassium 3.8 mmol/L (3.6-5.0) 04/20/19 20:14 Chloride 100.1 mmol/L (98-107) 04/20/19 20:14 Carbon Dioxide 19 mmol/L (22-30) L 04/20/19 20:14 Anion Gap 21 mmol/L 04/20/19 20:14 BUN 14 mg/dL (7-17) 04/20/19 20:14 Creatinine 1.5 mg/dL (0.7-1.2) H 04/20/19 20:14 Estimated GFR 43 ml/min 04/20/19 20:14 BUN/Creatinine Ratio 9 % 04/20/19 20:14 Glucose 228 mg/dL (65-100) H 04/20/19 20:14 POC Glucose 89 (70-105) 04/21/19 06:54 Hemoglobin A1c 5.2 % (4-6) 04/20/19 20:14 Calcium 9.1 mg/dL (8.4-10.2) 04/20/19 20:14 Total Bilirubin 0.40 mg/dL (0.1-1.2) 04/20/19 20:14 AST 15 units/L (5-40) 04/20/19 20:14 ALT 13 units/L (7-56) 04/20/19 20:14 Alkaline Phosphatase 53 units/L (35-129) 04/20/19 20:14 Total Protein 7.9 g/dL (6.3-8.2) 04/20/19 20:14 Albumin 4.2 g/dL (3.9-5) 04/20/19 20:14 Albumin/Globulin Ratio 1.1 % 04/20/19 20:14 Triglycerides 51 mg/dL (2-149) 04/20/19 20:14 Cholesterol 140 mg/dL (50-199) 04/20/19 20:14 LDL Cholesterol Direct 73 mg/dL (50-130) 04/20/19 20:14 HDL Cholesterol 56 mg/dL (40-59) 04/20/19 20:14 Cholesterol/HDL Ratio 2.50 % 04/20/19 20:14 - Discharge Diagnoses (1) Schizophrenia Status: Acute Qualifiers: Schizophrenia type: paranoid schizophrenia Qualified Code(s): F20.0 - Paranoid schizophrenia Core Measure Documentation - Palliative Care Palliative Care/ Comfort Measures: Not Applicable - Core Measures Any of the following diagnoses?: none Exam - Constitutional Vitals: Temp Pulse Resp BP Pulse Ox 98 F 72 16 104/60 100 04/23/19 21:25 04/23/19 21:25 04/23/19 21:25 04/23/19 21:25 04/23/19 21:25 General appearance: Present: no acute distress - EENT Eyes: Present: PERRL, EOM intact ENT: hearing intact, clear oral mucosa - Neck Neck: Present: supple, normal ROM - Respiratory Respiratory effort: normal Plan Activity: advance as tolerated Weight Bearing Status: Weight Bear as Tolerated Care Plan Goals: Maintain good and stable mood Plan of Treatment: Take medications as prescribed Health Concerns: None Assessment: Paranoid Schizophrenia Follow up with: PRIMARY CARE, [Primary Care Provider] - 7 Days Prescriptions: Paliperidone Palmitate [Invega Sustenna] 0.75 ml SUB-Q Q3W #1 risperiDONE [RisperDAL] 1 mg PO BID #30 tablet
[2019-04-24] MEDS: RisperDAL PO SCH (11:00)
[2019-04-24 11:32] VITALS: BP 115/68
[2019-04-24] MEDS: TENORMIN PO SCH (11:33)
[2019-04-24] MEDS: ZESTRIL PO SCH (11:34)
[2019-04-24] MEDS: PROzac PO SCH (11:35)
== END 2019-04-24 17:30 | disposition home or self-care (01) | DRG 885 ==
LOC: UNDOADMIN 15:34 → 3A 15:34 → 5A 18:35
PROVIDERS: ADMIT Psychiatry & Neurology Psychiatry; ATTEND Psychiatry & Neurology Psychiatry
DX: F20.0 Paranoid schizophrenia (principal); I10 Essential (primary) hypertension; F31.9 Bipolar disorder, unspecified; Z79.899 Other long term (current) drug therapy; Z82.49 Family history of ischemic heart disease and other diseases of the circulatory system
CPT/HCPCS: 36415; 80053; 80061; 82962; 83036; 85025; G0378